=== PATIENT | female | born 1975 | race Hispanic/Latino ===

== ENCOUNTER 2018-03-31 09:27 | Inpatient (IN) | payer BC ==
[2018-03-31 09:32] VITALS: BMI 27.1
[2018-03-31] MEDS ORDERED: Sodium Chloride 0.9% 1,000 ML IV STA (09:49)
[2018-03-31] MEDS ORDERED: Thiamine 100 mg/ml Inj IM ONE (09:49)
--- NOTE | 2018-03-31 10:09 | ED PDOC ---
HPI: Abdomen Time Seen by Provider: 03/31/18 09:39 Chief Complaint (Nursing): Abdominal Pain Chief Complaint (Provider): fall, abdominal bruising History Per: Patient History/Exam Limitations: no limitations Onset/Duration Of Symptoms: Days (2 weeks) Current Symptoms Are (Timing): Still Present Severity: Moderate Location Of Pain/Discomfort: Diffuse Quality Of Discomfort: Other (no current pain) Associated Symptoms: Nausea, Vomiting, Loss Of Appetite, Constipation. denies: Diarrhea Exacerbating Factors: None Alleviating Factors: None Last Bowel Movement: Days Ago (6) Additional Complaint(s): 42yo female arrives from urgent care center c/o abdominal bruising, dizziness/ weakness and intermittent abdominal pains. States she fell on sidewalk about 2 weeks ago, striking head and abdomen. No medical attention sought at the time. Since then having bruising to abdomen and R flank, dizziness and generalized weakness. Sent from for evaluation. States prior would binge drink, completed outpatient rehab in January and since then drinking minimally, states last drink 3 weeks ago. Denies melena, (+ constipation), fever, urinary symptoms. Does not persistent nausea, loss appetite and nonbloody vomiting intermittently. Past Medical History Reviewed: Historical Data, Nursing Documentation, Vital Signs Vital Signs: Last Vital Signs Temp 97.8 F 04/04/18 12:17 Pulse 86 04/04/18 12:17 Resp 18 04/04/18 12:17 BP 118/83 04/04/18 12:17 Pulse Ox 100 04/04/18 12:17 - Medical History Other PMH: etoh abuse - Surgical History Other surgeries: ACL repair - Family History Family History: States: Unknown Family Hx - Living Arrangements Living Arrangements: Alone - Social History Current smoker - smoking cessation education provided: Yes ("social smoker") Alcohol: > 2 Drinks/Day Drugs: Denies - Home Medications Home Medications: Ambulatory Orders Medication Instructions Recorded Biotin 1 cap PO DAILY 03/31/18 Folic Acid 1 mg PO DAILY #30 tab 04/04/18 Lactulose [Enulose] 30 gm PO DAILY #30 udc 04/04/18 - Allergies Allergies/Adverse Reactions: Allergies Allergy/AdvReac Type Severity Reaction Status Date / Time No Known Allergies Allergy Verified 03/31/18 09:36 Review of Systems Constitutional: Positive for: Weakness, Malaise, Weight loss. Negative for: Fever Eyes: Positive for: Redness Cardiovascular: Negative for: Chest Pain Respiratory: Positive for: Shortness of Breath Gastrointestinal: Positive for: Nausea, Vomiting, Abdominal Pain Genitourinary Female: Negative for: Dysuria, Hematuria Musculoskeletal: Negative for: Neck Pain, Back Pain Skin: Negative for: Rash, Lesions Neurological: Positive for: Weakness, Headache, Dizziness. Negative for: Change in Speech Psych: Negative for: Suicidal ideation Physical Exam - Reviewed Nursing Documentation Reviewed: Yes Vital Signs Reviewed: Yes - Physical Exam Appears: Positive for: Well, Non-toxic, No Acute Distress Head Exam: Positive for: ATRAUMATIC, NORMAL INSPECTION, NORMOCEPHALIC Skin: Positive for: Normal Color, Warm, DRY Eye Exam: Positive for: EOMI, PERRL, Conjunctival injection (trace), Scleral icterus (trace) ENT: Positive for: Normal ENT Inspection, Pharyngeal Erythema Neck: Positive for: Normal, Painless ROM Cardiovascular/Chest: Positive for: Regular Rate, Rhythm Respiratory: Positive for: Normal Breath Sounds. Negative for: Respiratory Distress Gastrointestinal/Abdominal: Positive for: Soft, Other (ecchymosis old appearing R flank and R abdominal anterior wall). Negative for: Tenderness, Distended, Guarding, Rebound Back: Positive for: Normal Inspection Extremity: Positive for: Normal ROM Neurologic/Psych: Positive for: Alert, Oriented. Negative for: Motor/Sensory Deficits - Laboratory Results Result Diagrams: 04/04/18 05:00 04/04/18 05:00 - ECG ECG: Positive for: Interpreted By Me ECG Rhythm: Positive for: ST/T Changes Rate: 84 O2 Sat by Pulse Oximetry: 100 Pulse Ox Interpretation: Normal Medical Decision Making Medical Decision Making: workup initiated for abdominal trauma in setting of alcohol abuse and concern for coagulopathy or liver dysfunction Udip +ketones/bili/blood labs reviewed reveal mild leukopenia and thrombocytopenia, Hgb normal chemistries deranged with hyponatremia, hypokalemia, elevated LFTs, hyperbilirubinemia and elevated lipase IVF LR bolus ordered oral potassium ordered CT brain negative CT abd pelv Accession No. : [id number] Patient Name / ID : SHERMAN BAKER / [id number] Exam Date : 03/31/2018 11:51:37 ( Approved ) Study Comment : Sex / Age : F / 42Y Creator : Xiang Sow MD Dictator : Xiang Sow MD Cryptographic Clerk : Head Of Commission Department : Xiang Sow MD Approver2 : Report Date : 03/31/2018 13:03:34 My Comment : Date of service: 03/31/2018 PROCEDURE: CT Abdomen and Pelvis with contrast HISTORY: fall, abd wall/ R flank ecchymosis, abuse COMPARISON: None. TECHNIQUE: Contrast dose: Omnipaque 300, 96 cc Radiation dose: Total exam DLP = 326.16 mGy-cm. This CT exam was performed using one or more of the following dose reduction techniques: Automated exposure control, adjustment of the mA and/or kV according to patient size, and/or use of iterative reconstruction technique. FINDINGS: LOWER THORAX: Unremarkable. LIVER: There is marked lucency throughout the liver compatible with hepatic steatosis. No focal mass or definite intrahepatic biliary dilatation is appreciated. GALLBLADDER AND BILE DUCTS: Gallbladder appears distended but is otherwise unremarkable appearing. PANCREAS: Unremarkable. No gross lesion or ductal dilatation. SPLEEN: Unremarkable. ADRENALS: Unremarkable. No mass. KIDNEYS AND URETERS: Unremarkable. No hydronephrosis. No solid mass. VASCULATURE: Unremarkable. No aortic aneurysm. BOWEL: Unremarkable. No obstruction. No gross mural thickening. APPENDIX: Normal appendix. PERITONEUM: Unremarkable. No free fluid. No free air. LYMPH NODES: Unremarkable. No enlarged lymph nodes. BLADDER: Unremarkable. REPRODUCTIVE: Likely tampon in vaginal vault. Two small left adnexal cysts just under 2 cm greatest dimension. BONES: No acute fracture. OTHER FINDINGS: Trace reactive change right flank subcutaneous fat superficially. IMPRESSION: 1. No acute intra-abdominal or pelvic findings. 2. No fracture identified. 3. Trace reactive change right flank superficial subcutaneous fat. 4. Marked hepatic steatosis. 5. Two small left adnexal cysts identified. Given chemistry derangement and evidence of acute liver injury admit Dr Sarah lay regional vice president surgical sales medicine aware 115p. Consult GI regional vice president surgical sales. Disposition - Clinical Impression Clinical Impression: Abdominal pain, History of ETOH abuse, Hyponatremia, Hypokalemia - Patient ED Disposition Is Patient to be Admitted: Yes - Disposition Disposition Time: 12:05 Condition: STABLE
[2018-03-31 10:15] LABS: BASO % 0.3 % (0.0-2.0); EOS % 0.1 % (0.0-4.0); LYMPH # 0.6 K/uL (1.0-4.3); LYMPH % 12.3 % (20.0-40.0); MEAN CELL VOLUME 90.6 fl (81.0-99.0); MEAN CORPUSCULAR HEMOGLOBIN 31.9 pg (27.0-31.0); MEAN CORPUSCULAR HGB CONC 35.3 g/dL (33.0-37.0); MEAN PLATELET VOLUME 8.2 fl (7.2-11.7); MONO # 0.5 K/uL (0.0-0.8); MONO % 11.1 % (0.0-10.0); NEUT # 3.6 K/uL (1.8-7.0); NEUT % 76.2 % (50.0-75.0); NRBC % 0.1 % (0.0-0.0); RBC 4.38 Mil/uL (3.80-5.20); RED CELL DISTRIBUTION WIDTH 15.7 % (11.5-14.5); WHITE BLOOD COUNT 4.7 K/uL (4.8-10.8)
[2018-03-31 10:24] LABS: SQUAMOUS EPITHIAL 7 /hpf (0-5); URINE BILIRUBIN SMALL (NEGATIVE); URINE BLOOD SMALL (NEGATIVE); URINE CLARITY CLOUDY (Clear); URINE COLOR AMBER (YELLOW); URINE GLUCOSE (UA) 50 mg/dL (Normal); URINE LEUKOCYTE ESTERASE NEG Leu/uL (Negative); URINE PROTEIN >=500 mg/dL (NEGATIVE)
[2018-03-31] MEDS ORDERED: Thiamine 100 mg/ml Inj ONE (10:33)
[2018-03-31 10:43] LABS: BARBITURATES, UR NEGATIVE (NEGATIVE); BENZODIAZEPINES, UR POSITIVE (NEGATIVE)
--- NOTE | 2018-03-31 10:57 | CT ---
Date of service: 03/31/2018 PROCEDURE: CT HEAD WITHOUT CONTRAST. HISTORY: fall, hx etoh abuse COMPARISON: None available. TECHNIQUE: Axial computed tomography images were obtained through the head/brain without intravenous contrast. Radiation dose: Total exam DLP = 797.50 mGy-cm. This CT exam was performed using one or more of the following dose reduction techniques: Automated exposure control, adjustment of the mA and/or kV according to patient size, and/or use of iterative reconstruction technique. FINDINGS: HEMORRHAGE: No intracranial hemorrhage. BRAIN: Normal ly-white matter differentiation and density are appreciated throughout the cerebrum and cerebellum with the brainstem appearing unremarkable as well. There is no mass effect. There is no suspicious extra-axial fluid collection and the midline brain anatomy appears diffusely unremarkable. VENTRICLES: Unremarkable. No hydrocephalus. CALVARIUM: No destructive bony lesion or displaced fracture identified including through the skullbase. PARANASAL SINUSES: Unremarkable as visualized. No significant inflammatory changes. MASTOID AIR CELLS: Unremarkable as visualized. No inflammatory changes. OTHER FINDINGS: None. IMPRESSION: Unremarkable noncontrast head CT.
[2018-03-31 11:15] LABS: OPIATES, UR NEGATIVE (NEGATIVE); PHENCYCLIDINE, UR NEGATIVE (NEGATIVE)
[2018-03-31 11:18] LABS: PROTHROMBIN TIME 11.3 Seconds (9.8-13.1)
[2018-03-31 11:20] LABS: PARTIAL THROMBOPLASTIN TIME 30.7 Seconds (25.6-37.1)
[2018-03-31 11:29] LABS: ALB/GLOB RATIO 1.2 (1.0-2.1); ALBUMIN 5.4 g/dL (3.5-5.0); ALT/SGPT 132 U/L (9-52); AST/SGOT 491 U/L (14-36); BLOOD UREA NITROGEN 14 mg/dl (7-17); GFR AFRICAN-AMERICAN > 60; GFR NON-AFRICAN AMERICAN > 60
[2018-03-31] MEDS ORDERED: Sodium Chloride 0.9% 50 ML IV ONE (11:57)
[2018-03-31] MEDS ORDERED: Iohexol 300 100 ML IJ ONE (11:57)
[2018-03-31 12:02] LABS: LIPASE 3175 U/L (23-300)
--- NOTE | 2018-03-31 13:04 | CT ---
Date of service: 03/31/2018 PROCEDURE: CT Abdomen and Pelvis with contrast HISTORY: fall, abd wall/ R flank ecchymosis, abuse COMPARISON: None. TECHNIQUE: Contrast dose: Omnipaque 300, 96 cc Radiation dose: Total exam DLP = 326.16 mGy-cm. This CT exam was performed using one or more of the following dose reduction techniques: Automated exposure control, adjustment of the mA and/or kV according to patient size, and/or use of iterative reconstruction technique. FINDINGS: LOWER THORAX: Unremarkable. LIVER: There is marked lucency throughout the liver compatible with hepatic steatosis. No focal mass or definite intrahepatic biliary dilatation is appreciated. GALLBLADDER AND BILE DUCTS: Gallbladder appears distended but is otherwise unremarkable appearing. PANCREAS: Unremarkable. No gross lesion or ductal dilatation. SPLEEN: Unremarkable. ADRENALS: Unremarkable. No mass. KIDNEYS AND URETERS: Unremarkable. No hydronephrosis. No solid mass. VASCULATURE: Unremarkable. No aortic aneurysm. BOWEL: Unremarkable. No obstruction. No gross mural thickening. APPENDIX: Normal appendix. PERITONEUM: Unremarkable. No free fluid. No free air. LYMPH NODES: Unremarkable. No enlarged lymph nodes. BLADDER: Unremarkable. REPRODUCTIVE: Likely tampon in vaginal vault. Two small left adnexal cysts just under 2 cm greatest dimension. BONES: No acute fracture. OTHER FINDINGS: Trace reactive change right flank subcutaneous fat superficially. IMPRESSION: 1. No acute intra-abdominal or pelvic findings. 2. No fracture identified. 3. Trace reactive change right flank superficial subcutaneous fat. 4. Marked hepatic steatosis. 5. Two small left adnexal cysts identified.
[2018-03-31] MEDS ORDERED: Lactated Ringer's 1,000 ML IV SCH (13:30)
[2018-03-31] MEDS ORDERED: Potassium Chloride 20 mEq ER Tab PO ONE ×2 (13:38→13:54)
--- NOTE | 2018-03-31 16:01 | US ---
Date of service: 03/31/2018 HISTORY: elevated lipase r/o CBD stone COMPARISON: None. TECHNIQUE: Sonographic evaluation of the right upper quadrant of the abdomen. FINDINGS: LIVER: Measures 18.5 cm in length. Increased echogenicity of the liver parenchyma. No mass. No intrahepatic bile duct dilatation. GALLBLADDER: Sludge identified layering in the dependent portion of the distended gallbladder. No mural thickening or pericholecystic fluid collection. No reported sonographic Fay sign. COMMON BILE DUCT: Measures 5.0 mm. No stones. No dilatation. PANCREAS: Unremarkable as visualized. No mass. No ductal dilatation. RIGHT KIDNEY: Measures 11.8 cm in length. Normal echogenicity. No calculus, mass, or hydronephrosis. AORTA: No aneurysmal dilatation. IVC: Unremarkable. OTHER FINDINGS: None . IMPRESSION: Hepatic steatosis identified. Distended gallbladder with sludge at the dependent portion. No sonographic Fay sign. Normal caliber CBD.
--- NOTE | 2018-03-31 17:04 | CARD ---
APPROVED REPORT Date of service: 03/31/2018 <Conclusion> Normal sinus rhythm Cannot rule out Inferior infarct, age undetermined ST & T wave abnormality, consider anterior ischemia Abnormal ECG
[2018-03-31] MEDS: Lactated Ringer's 1,000 ML IV SCH ×2 (19:10→23:20)
[2018-03-31] MEDS ORDERED: HYDROmorphone 1 mg/ml ISec IVP PRN (19:56)
[2018-04-01 06:20] LABS: PROTHROMBIN TIME 11.6 Seconds (9.8-13.1)
[2018-04-01 06:29] LABS: ALB/GLOB RATIO 1.3 (1.0-2.1); ALBUMIN 3.8 g/dL (3.5-5.0); ALT/SGPT 110 U/L (9-52); AST/SGOT 381 U/L (14-36); BLOOD UREA NITROGEN 5 mg/dl (7-17); CALCIUM 9.3 mg/dL (8.4-10.2); GFR AFRICAN-AMERICAN > 60; GFR NON-AFRICAN AMERICAN > 60
[2018-04-01] MEDS: Lactated Ringer's 1,000 ML IV SCH (08:56)
[2018-04-01] MEDS: Lactulose 10 gm/15 ml Syrup PO SCH (08:57)
[2018-04-01 10:54] LABS: OPIATES, UR NEGATIVE (NEGATIVE)
[2018-04-01 10:59] LABS: BARBITURATES, UR NEGATIVE (NEGATIVE); BENZODIAZEPINES, UR NEGATIVE (NEGATIVE); PHENCYCLIDINE, UR NEGATIVE (NEGATIVE)
--- NOTE | 2018-04-01 13:19 | CP.PCM.CON ---
Addendum entered and electronically signed by Kvng Avalos DO 04/01/18 14:26 : Case discussed with GI attending, Dr Angeles Original Note: <Kvng Avalos - Last Filed: 04/01/18 14:23> History of Present Illness - History of Present Illness History of Present Illness: PGY6 GI Fellow Consult Note Patient is a 42 year-old white female with PMHx significant for alcohol abuse s/ p recent alcohol rehabilitation ending in January 2018 who presented to the ED yesterday with generalized weakness, abdominal pain, vomiting. Patient states she was in normal health until 10 days ago after she missed a step on the sidewalk and fell. She does not recall whether or not she hit her head. Moreover , at around the same time she admits to contact with an ill neighbor who had a gastrointestinal infection. Following these events, she developed nausea, vomiting, diarrhea and abdominal pain. States she has had difficulty tolerating PO intake for approximately 10 days. The patient does admit to EtOH use following her rehabilitation but denies any recent use but does not appear forthcoming with this information. 12 system ROS performed and negative except where stated PMHx: See HPI PSHx: ACL repair FHx: Discussed with patient and she denies any significant family history Social: Denies tobacco or illicit drug use, ongoing EtOH abuse and history of heavy use/rehab Endo: No prior endoscopic evaluations Past Patient History - Past Medical History & Family History Past Medical History?: Yes - Past Social History Smoking Status: Light Smoker < 10 Cigarettes Daily - CARDIAC Hx Cardiac Disorders: No - PULMONARY Hx Respiratory Disorders: No - NEUROLOGICAL Hx Neurological Disorder: No - HEENT Hx HEENT Problems: No - RENAL Hx Chronic Kidney Disease: No - ENDOCRINE/METABOLIC Hx Endocrine Disorders: No - HEMATOLOGICAL/ONCOLOGICAL Hx AIDS: No Hx Bruising: Yes Hx Human Immunodeficiency Virus (HIV): No - INTEGUMENTARY Hx Dermatological Problems: No - MUSCULOSKELETAL/RHEUMATOLOGICAL Hx Falls: Yes (2 weeks ago) - GASTROINTESTINAL Hx Constipation: Yes (last bm 6 days ago) - GENITOURINARY/GYNECOLOGICAL Other/Comment: 1 miscarriage 10 yr ago - PSYCHIATRIC Hx Anxiety: Yes Hx Substance Use: No Other/Comment: etoh last drink 3 weeks ago. outpatient rehab 3 mo ended 02/13. drank after program last 3 wks ago - SURGICAL HISTORY Other/Comment: ACL rt foot 10 yrs ago - ANESTHESIA Hx Anesthesia: Yes Hx Anesthesia Reactions: No Meds Allergies/Adverse Reactions: Allergies Allergy/AdvReac Type Severity Reaction Status Date / Time No Known Allergies Allergy Verified 03/31/18 09:36 - Medications Medications: Current Medications Hydromorphone HCl (Dilaudid) 1 mg IVP Q4 PRN PRN Reason: Pain, severe (8-10) Last Admin: 03/31/18 20:56 Dose: 1 mg Lactated Ringer's (Lactated Ringer's) 1,000 mls @ 250 mls/hr IV .Q4H [facility] Last Admin: 04/01/18 08:56 Dose: 250 mls/hr Lactulose (Enulose) 30 gm PO DAILY ARGELIA Last Admin: 04/01/18 08:57 Dose: 30 gm Physical Exam - Constitutional Appears: Non-toxic, No Acute Distress - Eye Exam Eye Exam: EOMI, PERRL - ENT Exam ENT Exam: Mucous Membranes Moist - Respiratory Exam Respiratory Exam: Clear to Auscultation Bilateral. absent: Rales, Rhonchi, Wheezes - Cardiovascular Exam Cardiovascular Exam: RRR, +S1, +S2 - GI/Abdominal Exam GI & Abdominal Exam: Normal Bowel Sounds, Organomegaly, Soft. absent: Distended , Firm, Guarding, Hernia, Rigid, Tenderness - Extremities Exam Extremities exam: Positive for: normal inspection. Negative for: pedal edema Additional comments: healing scab over left knee - Neurological Exam Neurological exam: Alert, Oriented x3 - Psychiatric Exam Psychiatric exam: Normal Affect, Normal Mood - Skin Skin Exam: Dry, Warm Results - Vital Signs Recent Vital Signs: Last Vital Signs Temp 99 F 04/01/18 12:14 Pulse 83 04/01/18 12:14 Resp 18 04/01/18 12:14 BP 117/80 04/01/18 12:14 Pulse Ox 99 04/01/18 12:14 - Labs Result Diagrams: 03/31/18 10:08 04/01/18 04:35 Labs: Laboratory Results - last 24 hr 03/31/18 04/01/18 04/01/18 15:30 04:35 04:35 PT 11.6 INR 1.0 Sodium 132 Potassium 3.0 L Chloride 93 L Carbon Dioxide 31 H Anion Gap 11 BUN 5 L Creatinine 0.3 L Est GFR ( Amer) > 60 Est GFR (Non-Af Amer) > 60 Random Glucose 129 H Calcium 9.3 Total Bilirubin 5.6 H AST 381 H D ALT 110 H Alkaline Phosphatase 115 Troponin I 0.0230 Total Protein 6.9 Albumin 3.8 Globulin 3.0 Albumin/Globulin Ratio 1.3 TSH 3rd Generation 3.08 Urine Opiates Screen Urine Methadone Screen Ur Barbiturates Screen Ur Phencyclidine Scrn Ur Amphetamines Screen U Benzodiazepines Scrn U Oth Cocaine Metabols U Cannabinoids Screen 04/01/18 10:20 PT INR Sodium Potassium Chloride Carbon Dioxide Anion Gap BUN Creatinine Est GFR ( Amer) Est GFR (Non-Af Amer) Random Glucose Calcium Total Bilirubin AST ALT Alkaline Phosphatase Troponin I Total Protein Albumin Globulin Albumin/Globulin Ratio TSH 3rd Generation Urine Opiates Screen Negative Urine Methadone Screen Negative Ur Barbiturates Screen Negative Ur Phencyclidine Scrn Negative Ur Amphetamines Screen Negative U Benzodiazepines Scrn Negative U Oth Cocaine Metabols Negative U Cannabinoids Screen Negative Assessment & Plan - Assessment and Plan (Free Text) Assessment: Patient is a 42 year-old white female with PMHx significant for alcohol abuse s/ p recent alcohol rehabilitation ending in January 2018 who presented to the ED yesterday with generalized weakness, abdominal pain, vomiting -Abnormal LFTs - Acute alcoholic hepatitis suspected -Acute gastroenteritis -Questionable resolving acute alcoholic pancreatitis -EtOH abuse -Hyperlipasemia -Hyponatremia, suspect beer potomania -S/P fall - possible post-concussive symptoms Plan: -Presently, patient asymptomatic -Symptoms of nausea/vomiting after fall possibly related to post-concussive symptoms - no abnormality noted on CT head -On aggressive IVF with LR 250cc/hr - OK to discontinue if patient can tolerate diet -Advance diet as tolerated -Continue to trend LFTs; AST/ALT downtrending - T bili typically lags behind -Hepatomegaly appreciate on imaging with steatosis - education provided on strict EtOH abstinence, diet and exercise -Recommend Hepatitis panel -MDF<32 and no steroids indicated at this time for acute alcoholic hepatitis -Suspect beer potomania - Date & Time Date: 04/01/18 Time: 11:45 <Geovany Angeles - Last Filed: 04/01/18 18:59> Meds - Medications Medications: Current Medications Hydromorphone HCl (Dilaudid) 1 mg IVP Q4 PRN PRN Reason: Pain, severe (8-10) Last Admin: 03/31/18 20:56 Dose: 1 mg Lactulose (Enulose) 30 gm PO DAILY ARGELIA Last Admin: 04/01/18 08:57 Dose: 30 gm Results - Vital Signs Recent Vital Signs: Last Vital Signs Temp 99 F 04/01/18 12:14 Pulse 88 04/01/18 15:50 Resp 18 04/01/18 15:50 BP 130/87 04/01/18 15:50 Pulse Ox 98 04/01/18 15:50 - Labs Result Diagrams: 03/31/18 10:08 04/01/18 04:35 Labs: Laboratory Results - last 24 hr 04/01/18 04/01/18 04/01/18 04:35 04:35 10:20 PT 11.6 INR 1.0 Sodium 132 Potassium 3.0 L Chloride 93 L Carbon Dioxide 31 H Anion Gap 11 BUN 5 L Creatinine 0.3 L Est GFR ( Amer) > 60 Est GFR (Non-Af Amer) > 60 Random Glucose 129 H Calcium 9.3 Total Bilirubin 5.6 H AST 381 H D ALT 110 H Alkaline Phosphatase 115 Total Protein 6.9 Albumin 3.8 Globulin 3.0 Albumin/Globulin Ratio 1.3 TSH 3rd Generation 3.08 Urine Opiates Screen Negative Urine Methadone Screen Negative Ur Barbiturates Screen Negative Ur Phencyclidine Scrn Negative Ur Amphetamines Screen Negative U Benzodiazepines Scrn Negative U Oth Cocaine Metabols Negative U Cannabinoids Screen Negative Attending/Attestation - Attestation I have personally seen and examined this patient.: Yes I have fully participated in the care of the patient.: Yes I have reviewed all pertinent clinical information: Yes Notes (Text): 04/01/18 18:53 Chart reviewed. Labs and imaging results noted. The pt was interview and examined this afternoon. Appears comfortable. Alert and oriented. Tolerated diet. Agree with Dr. Avalos's assessment and plan as outlined above.
--- NOTE | 2018-04-01 14:42 | CP.PCM.HP ---
History of Present Illness - History of Present Illness History of Present Illness: CC: Abdominal pain. 42 y/o F, Hx of Alcohol abuse, recent rehab January 2018, sent by Urgent Care to [facility] for evaluation of increased abdominal pain, intensity 6:10 associated to nausea/vomiting, as per PT 2nd to fall/trauma, having bruising and pain on abdomen after fall with LOC, onset 2 weeks [employer], with no relief. As per PT, she fell while walking in the street and she missed a step on the sidewalk an fell heating her abdomen and head. Pt denied head pain due to trauma. Worsening symptom: Found abnormal LFTs, c/o of constant Left lower back pain 510, generalized weakness. Aggravated factor: Continue drinking , as per Pt, last was 3 weeks ago. Pt denied: Fever, chills, headache, dysuria, CP, palpitations, numbness, SOB, cough, sick contact, [facility] EKG: Normal sinus rhythm, cannot ruled out inferior infarct age undetermined. Abd/Pelv CT: Marked Hepatic steatosis, no focal mass. Gallbladder distended but otherwise unremarkable. Present on Admission - Present on Admission Any Indicators Present on Admission: No Review of Systems - Constitutional Constitutional: Weakness - EENT Eyes: Requires Corrective Lenses Ears: Other (negative) Nose/Mouth/Throat: Other (negative) - Cardiovascular Cardiovascular: Other (negative) - Respiratory Respiratory: Other (negative) - Gastrointestinal Gastrointestinal: Abdominal Pain, Nausea, Vomiting - Genitourinary Genitourinary: Other (negative) - Musculoskeletal Musculoskeletal: Back Pain - Integumentary Integumentary: Other (Bruising 2nd to fall) - Neurological Neurological: Other (LOC 2nd to fall) - Psychiatric Psychiatric: Anxiety - Endocrine Endocrine: Other (negative) - Hematologic/Lymphatic Hematologic: Other (bruising 2nd to fall) Past Patient History - Past Medical History & Family History Past Medical History?: Yes Pertinent Family History: Unknown - Past Social History Smoking Status: Light Smoker < 10 Cigarettes Daily Alcohol: Other (ETOH abuse until January 2018. there after less amount until 2 weeks ago as per Pt.) Drugs: Denies Home Situation {Lives}: Alone - CARDIAC Hx Cardiac Disorders: No - PULMONARY Hx Respiratory Disorders: No - NEUROLOGICAL Hx Neurological Disorder: No - HEENT Hx HEENT Problems: No - RENAL Hx Chronic Kidney Disease: No - ENDOCRINE/METABOLIC Hx Endocrine Disorders: No - HEMATOLOGICAL/ONCOLOGICAL Hx Blood Disorders: Yes Hx AIDS: No Hx Bruising: Yes Hx Human Immunodeficiency Virus (HIV): No - INTEGUMENTARY Hx Dermatological Problems: No - MUSCULOSKELETAL/RHEUMATOLOGICAL Hx Musculoskeletal Disorders: Yes Hx Falls: Yes (2 weeks ago) - GASTROINTESTINAL Hx Gastrointestinal Disorders: Yes Hx Constipation: Yes (last bm 6 days ago) - GENITOURINARY/GYNECOLOGICAL Other/Comment: 1 miscarriage 10 yr ago - PSYCHIATRIC Hx Psychophysiologic Disorder: Yes Hx Anxiety: Yes Hx Substance Use: No Other/Comment: etoh last drink 3 weeks ago. outpatient rehab 3 mo ended 02/13. drank after program last 3 wks ago - SURGICAL HISTORY Hx Surgeries: Yes Other/Comment: ACL rt foot 10 yrs ago - ANESTHESIA Hx Anesthesia: Yes Hx Anesthesia Reactions: No Meds Allergies/Adverse Reactions: Allergies Allergy/AdvReac Type Severity Reaction Status Date / Time No Known Allergies Allergy Verified 03/31/18 09:36 Physical Exam - Constitutional Appears: No Acute Distress - Head Exam Head Exam: NORMAL INSPECTION - Eye Exam Eye Exam: PERRL - ENT Exam ENT Exam: Normal Exam - Neck Exam Neck exam: Positive for: Normal Inspection - Respiratory Exam Respiratory Exam: Clear to Auscultation Bilateral - Cardiovascular Exam Cardiovascular Exam: REGULAR RHYTHM - GI/Abdominal Exam GI & Abdominal Exam: Normal Bowel Sounds, Soft Additional comments: Old ecchymosis appearance on R flank, R abdominal anterior wall. - Extremities Exam Extremities exam: Positive for: normal inspection - Back Exam Back exam: NORMAL INSPECTION - Neurological Exam Neurological exam: Alert, Oriented x3, Reflexes Normal Additional comments: No motor/sensory deficit. - Skin Skin Exam: Warm Results - Vital Signs Recent Vital Signs: Last Vital Signs Temp 99 F 04/01/18 12:14 Pulse 83 04/01/18 12:14 Resp 18 04/01/18 12:14 BP 117/80 04/01/18 12:14 Pulse Ox 99 04/01/18 12:14 reviewed Jeff - Labs Result Diagrams: 03/31/18 10:08 04/01/18 04:35 Labs: Laboratory Results - last 24 hr 03/31/18 04/01/18 04/01/18 15:30 04:35 04:35 PT 11.6 INR 1.0 Sodium 132 Potassium 3.0 L Chloride 93 L Carbon Dioxide 31 H Anion Gap 11 BUN 5 L Creatinine 0.3 L Est GFR ( Amer) > 60 Est GFR (Non-Af Amer) > 60 Random Glucose 129 H Calcium 9.3 Total Bilirubin 5.6 H AST 381 H D ALT 110 H Alkaline Phosphatase 115 Troponin I 0.0230 Total Protein 6.9 Albumin 3.8 Globulin 3.0 Albumin/Globulin Ratio 1.3 TSH 3rd Generation 3.08 Urine Opiates Screen Urine Methadone Screen Ur Barbiturates Screen Ur Phencyclidine Scrn Ur Amphetamines Screen U Benzodiazepines Scrn U Oth Cocaine Metabols U Cannabinoids Screen 04/01/18 10:20 PT INR Sodium Potassium Chloride Carbon Dioxide Anion Gap BUN Creatinine Est GFR ( Amer) Est GFR (Non-Af Amer) Random Glucose Calcium Total Bilirubin AST ALT Alkaline Phosphatase Troponin I Total Protein Albumin Globulin Albumin/Globulin Ratio TSH 3rd Generation Urine Opiates Screen Negative Urine Methadone Screen Negative Ur Barbiturates Screen Negative Ur Phencyclidine Scrn Negative Ur Amphetamines Screen Negative U Benzodiazepines Scrn Negative U Oth Cocaine Metabols Negative U Cannabinoids Screen Negative reviewed J.P. - EKG Data EKG comments: reviewed J.P. - Imaging and Cardiology CT scan - abdomen Status: Report reviewed by me (Jeff) CT scan - pelvis Status: Report reviewed by me (Jeff) US - abdomen Status: Report reviewed by me (Jeff) CT scan - head Status: Report reviewed by me (Jeff) Assessment & Plan (1) Hx of fall Status: Acute Priority: High (2) Abdominal pain Status: Acute Priority: High (3) Hepatic steatosis Status: Acute Priority: High (4) Constipation Status: Acute Priority: High (5) History of ETOH abuse Status: Acute Priority: High - Assessment and Plan (Free Text) Plan: Continue IV fluids, Dilaudid, Lactulose, F/U Hepatitis panel, Blood C-S, U C-S, GI consult appreciated. - Date & Time Date: 04/01/18 Time: 11:55
[2018-04-02 07:04] LABS: BASO % 0.7 % (0.0-2.0); EOS % 0.9 % (0.0-4.0); HEMOGLOBIN 11.1 g/dL (12.0-16.0); LYMPH # 0.8 K/uL (1.0-4.3); MEAN CELL VOLUME 91.7 fl (81.0-99.0); MEAN CORPUSCULAR HEMOGLOBIN 31.4 pg (27.0-31.0); MEAN CORPUSCULAR HGB CONC 34.2 g/dL (33.0-37.0); MONO # 0.4 K/uL (0.0-0.8); MONO % 12.3 % (0.0-10.0); NEUT # 1.8 K/uL (1.8-7.0); NEUT % 59.1 % (50.0-75.0); NRBC % 0.2 % (0.0-0.0); RBC 3.55 Mil/uL (3.80-5.20); RED CELL DISTRIBUTION WIDTH 15.6 % (11.5-14.5); WHITE BLOOD COUNT 3.1 K/uL (4.8-10.8)
[2018-04-02 07:23] LABS: ALB/GLOB RATIO 1.3 (1.0-2.1); ALBUMIN 3.8 g/dL (3.5-5.0); ALT/SGPT 109 U/L (9-52); AST/SGOT 285 U/L (14-36); BLOOD UREA NITROGEN 3 mg/dl (7-17); CALCIUM 9.6 mg/dL (8.4-10.2); GFR AFRICAN-AMERICAN > 60; GFR NON-AFRICAN AMERICAN > 60
[2018-04-02 07:27] LABS: INR 1.1
[2018-04-02] MEDS: Potassium CL 10 MEQ/50 ML 50 ML IVPB SCH ×4 (11:11→14:32)
[2018-04-02] MEDS: Lactulose 10 gm/15 ml Syrup PO SCH (11:11)
--- NOTE | 2018-04-02 12:17 | CP.PCM.PN ---
<Kvng Avalos - Last Filed: 04/02/18 12:15> Subjective - Date & Time of Evaluation Date of Evaluation: 04/02/18 Time of Evaluation: 10:45 - Subjective Subjective: PGY6 GI Fellow Progress Note Patient seen and examined bedside this morning. She has no complaints at present. States that she ate all meals without issue and denies any abdominal pain, nausea, vomiting, dizziness, lightheadedness. Admits that she cannot recall multiple conversations she has had following her mechanical fall. 12 system ROS performed and negative except where stated Objective - Vital Signs/Intake and Output Vital Signs (last 24 hours): Temp Pulse Resp BP Pulse Ox 98.6 F 77 18 110/73 99 04/02/18 11:56 04/02/18 11:56 04/02/18 11:56 04/02/18 11:56 04/02/18 11:56 - Medications Medications: Current Medications Chlordiazepoxide (Librium) 25 mg PO Q6 [facility] Hydromorphone HCl (Dilaudid) 1 mg IVP Q4 PRN PRN Reason: Pain, severe (8-10) Last Admin: 03/31/18 20:56 Dose: 1 mg Potassium Chloride (Potassium Cl 10meq/50ml Sterile Water) 50 mls @ 50 mls/hr IVPB Q1 [facility] Stop: 04/02/18 12:59 Last Admin: 04/02/18 11:11 Dose: 50 mls/hr Lactulose (Enulose) 30 gm PO DAILY [facility] Last Admin: 04/02/18 11:11 Dose: Not Given - Labs Labs: 04/02/18 06:34 04/02/18 06:34 PT 12.0 Seconds (9.8-13.1) 04/02/18 06:34 INR 1.1 04/02/18 06:34 APTT 30.7 Seconds (25.6-37.1) 03/31/18 11:05 - Constitutional Appears: Non-toxic, No Acute Distress - Eye Exam Eye Exam: EOMI, PERRL - ENT Exam ENT Exam: Mucous Membranes Moist - Respiratory Exam Respiratory Exam: Clear to Ausculation Bilateral. absent: Rales, Rhonchi, Wheezes - Cardiovascular Exam Cardiovascular Exam: RRR, +S1, +S2 - GI/Abdominal Exam GI & Abdominal Exam: Soft, Normal Bowel Sounds. absent: Distended, Firm, Guarding, Rigid, Tenderness, Organomegaly - Extremities Exam Extremities Exam: Normal Inspection. absent: Pedal Edema - Neurological Exam Neurological Exam: Alert, Awake, Oriented x3 - Skin Additional comments: left knee abrasion, healing Assessment and Plan - Assessment and Plan (Free Text) Assessment: Patient is a 42 year-old white female with PMHx significant for alcohol abuse s/ p recent alcohol rehabilitation ending in January 2018 who presented to the ED yesterday with generalized weakness, abdominal pain, vomiting -Abnormal LFTs - Mixed pattern, Acute alcoholic hepatitis suspected -Acute gastroenteritis, resolved -Questionable resolving acute alcoholic pancreatitis less likely -EtOH abuse -Hepatic steatosis -Hyperlipasemia -Hyponatremia, suspect beer potomania -Hypokalemia, hypophosphatemia -S/P mechanical fall - suspect post-concussive symptoms Plan: -Patient remains asymptomatic, eager to go home -Suspect post-concussive symptoms vs recent EtOH use - confusion/amnesia/ dizziness; could consider neurologic evaluation but defer to primary team -Diet as tolerated -LFTs downtrending; recommend outpatient follow up and repeat CMP in 1 week -MDF<32, no indication for corticosteroid therapy -Hepatitis panel pending -Encouraged patient to establish care with primary care as outpatient -EtOH cessation strongly encouraged, education provided -Multiple electrolyte abnormalities - replete K+ and Phos as indicated -OK to D/C from GI standpoint Case discussed with GI attending, Dr Angeles <Geovany Angeles - Last Filed: 04/02/18 15:10> Objective - Vital Signs/Intake and Output Vital Signs (last 24 hours): Temp Pulse Resp BP Pulse Ox 98.6 F 77 18 110/73 99 04/02/18 11:56 04/02/18 11:56 04/02/18 11:56 04/02/18 11:56 04/02/18 11:56 - Medications Medications: Current Medications Chlordiazepoxide (Librium) 25 mg PO Q6 [facility] Last Admin: 04/02/18 12:35 Dose: 25 mg Folic Acid (Folic Acid) 1 mg PO DAILY [facility] Last Admin: 04/02/18 14:31 Dose: 1 mg Hydromorphone HCl (Dilaudid) 1 mg IVP Q4 PRN PRN Reason: Pain, severe (8-10) Last Admin: 03/31/18 20:56 Dose: 1 mg Lactulose (Enulose) 30 gm PO DAILY [facility] Last Admin: 04/02/18 11:11 Dose: Not Given Thiamine HCl (Vitamin B1 Tab) 100 mg PO DAILY [facility] Last Admin: 04/02/18 14:31 Dose: 100 mg - Labs Labs: 04/02/18 06:34 04/02/18 06:34 PT 12.0 Seconds (9.8-13.1) 04/02/18 06:34 INR 1.1 04/02/18 06:34 APTT 30.7 Seconds (25.6-37.1) 03/31/18 11:05 Attending/Attestation - Attestation I have personally seen and examined this patient.: Yes I have fully participated in the care of the patient.: Yes I have reviewed all pertinent clinical information, including history, physical exam and plan: Yes Notes (Text): 04/02/18 15:09 Chart and labs reviewed. Pt interviewed and examined. Pt/s mother was present at bedside. Awake and alert. Tolerating diet. Non-tended abdomen with normal bowel sounds on exam. Started on Librium this am. Electrolytes being corrected. Agree with Dr. Ridley's assessment and plan. Will need substance abuse counselling.
--- NOTE | 2018-04-02 14:07 | CP.PCM.PN ---
Subjective - Date & Time of Evaluation Date of Evaluation: 04/02/18 Time of Evaluation: 13:40 - Subjective Subjective: F/U Abdominal pain. no abdominal pain, tolerating well diet Objective - Vital Signs/Intake and Output Vital Signs (last 24 hours): Temp Pulse Resp BP Pulse Ox 98.6 F 77 18 110/73 99 04/02/18 11:56 04/02/18 11:56 04/02/18 11:56 04/02/18 11:56 04/02/18 11:56 - Medications Medications: Current Medications Chlordiazepoxide (Librium) 25 mg PO Q6 [facility] Last Admin: 04/02/18 12:35 Dose: 25 mg Folic Acid (Folic Acid) 1 mg PO DAILY [facility] Hydromorphone HCl (Dilaudid) 1 mg IVP Q4 PRN PRN Reason: Pain, severe (8-10) Last Admin: 03/31/18 20:56 Dose: 1 mg Lactulose (Enulose) 30 gm PO DAILY [facility] Last Admin: 04/02/18 11:11 Dose: Not Given Thiamine HCl (Vitamin B1 Tab) 100 mg PO DAILY [facility] - Labs Labs: 04/02/18 06:34 04/02/18 06:34 PT 12.0 Seconds (9.8-13.1) 04/02/18 06:34 INR 1.1 04/02/18 06:34 APTT 30.7 Seconds (25.6-37.1) 03/31/18 11:05 - Constitutional Appears: No Acute Distress - Head Exam Head Exam: NORMAL INSPECTION - Eye Exam Eye Exam: PERRL - ENT Exam ENT Exam: Normal Exam - Neck Exam Neck Exam: Normal Inspection - Respiratory Exam Respiratory Exam: Clear to Ausculation Bilateral - Cardiovascular Exam Cardiovascular Exam: REGULAR RHYTHM - GI/Abdominal Exam GI & Abdominal Exam: Soft, Normal Bowel Sounds Additional comments: Old ecchymosis on R flank, R abdominal anterior wall. - Extremities Exam Extremities Exam: Normal Inspection - Back Exam Back Exam: NORMAL INSPECTION - Neurological Exam Neurological Exam: Alert, Oriented x3, Reflexes Normal Additional comments: No motor/sensory deficit. - Skin Skin Exam: Warm Assessment and Plan (1) Hx of fall Status: Acute (2) Abdominal pain Status: Acute (3) Hepatic steatosis Status: Acute (4) Constipation Status: Acute (5) History of ETOH abuse Status: Acute - Assessment and Plan (Free Text) Plan: continue Librium, K 2.9, K replacement and rest of treatment
[2018-04-02] MEDS: Potassium & Sodium Phosphate PO SCH ×3 (15:20→21:26)
[2018-04-03 05:39] LABS: EOS # 0.1 K/uL (0.0-0.7); EOS % 1.9 % (0.0-4.0); HEMOGLOBIN 11.2 g/dL (12.0-16.0); LYMPH # 1.4 K/uL (1.0-4.3); LYMPH % 35.2 % (20.0-40.0); MEAN CELL VOLUME 92.4 fl (81.0-99.0); MEAN CORPUSCULAR HEMOGLOBIN 31.8 pg (27.0-31.0); MEAN CORPUSCULAR HGB CONC 34.4 g/dL (33.0-37.0); MEAN PLATELET VOLUME 7.9 fl (7.2-11.7); MONO # 0.6 K/uL (0.0-0.8); MONO % 15.5 % (0.0-10.0); NEUT # 1.8 K/uL (1.8-7.0); NEUT % 46.4 % (50.0-75.0); NRBC % 0.2 % (0.0-0.0); RBC 3.54 Mil/uL (3.80-5.20); RED CELL DISTRIBUTION WIDTH 15.6 % (11.5-14.5)
[2018-04-03 05:56] LABS: ALB/GLOB RATIO 1.1 (1.0-2.1); ALBUMIN 3.6 g/dL (3.5-5.0); ALT/SGPT 84 U/L (9-52); AST/SGOT 210 U/L (14-36); BLOOD UREA NITROGEN 4 mg/dl (7-17); CALCIUM 9.3 mg/dL (8.4-10.2); GFR AFRICAN-AMERICAN > 60; GFR NON-AFRICAN AMERICAN > 60
[2018-04-03 08:16] LABS: HEPATITIS B SURFACE AG Negative (NEGATIVE)
[2018-04-03 08:20] LABS: HEPATITIS B SURFACE AG Negative (NEGATIVE)
[2018-04-03 08:22] LABS: HEPATITIS A IGM NEGATIVE (NEGATIVE); HEPATITIS B CORE AB NEGATIVE (NEGATIVE)
[2018-04-03] MEDS ORDERED: Potassium Chloride 20 mEq ER Tab PO ONE (08:23)
[2018-04-03 08:25] LABS: HEPATITIS A IGM NEGATIVE (NEGATIVE); HEPATITIS B CORE AB NEGATIVE (NEGATIVE)
[2018-04-03 08:34] LABS: HEPATITIS C ANTIBODY NEGATIVE (NEGATIVE)
[2018-04-03 08:37] LABS: HEPATITIS C ANTIBODY NEGATIVE (NEGATIVE)
[2018-04-03] MEDS ORDERED: Magnesium Sulfate 1 gm in D5W 1 GM/100 ML BAG IVPB ONE (09:13)
[2018-04-03] MEDS: Potassium & Sodium Phosphate PO SCH ×4 (09:49→21:58)
[2018-04-03] MEDS: Lactulose 10 gm/15 ml Syrup PO SCH (09:50)
[2018-04-03 10:38] LABS: AMYLASE 137 U/L (30-110); LIPASE 911 U/L (23-300)
[2018-04-03] MEDS: Potassium CL 10 MEQ/50 ML 50 ML IVPB SCH ×3 (11:18→13:35)
--- NOTE | 2018-04-03 13:36 | CP.PCM.PN ---
Subjective - Date & Time of Evaluation Date of Evaluation: 04/03/18 Time of Evaluation: 10:55 - Subjective Subjective: F/U Abdominal pain. No A/D, no abdominal pain. eating well. Objective - Vital Signs/Intake and Output Vital Signs (last 24 hours): Temp Pulse Resp BP Pulse Ox 97.6 F 72 20 115/77 100 04/03/18 12:00 04/03/18 12:00 04/03/18 12:00 04/03/18 12:00 04/03/18 12:00 - Medications Medications: Current Medications Chlordiazepoxide (Librium) 25 mg PO Q6 [facility] Last Admin: 04/03/18 09:49 Dose: 25 mg Folic Acid (Folic Acid) 1 mg PO DAILY [facility] Last Admin: 04/03/18 09:50 Dose: 1 mg Hydromorphone HCl (Dilaudid) 1 mg IVP Q4 PRN PRN Reason: Pain, severe (8-10) Last Admin: 03/31/18 20:56 Dose: 1 mg Lactulose (Enulose) 30 gm PO DAILY [facility] Last Admin: 04/03/18 09:50 Dose: Not Given Potassium Phos/Sodium Phos (Neutra-Phos) 1 pkt PO QID [facility] Last Admin: 04/03/18 13:36 Dose: 1 pkt Thiamine HCl (Vitamin B1 Tab) 100 mg PO DAILY [facility] Last Admin: 04/03/18 09:50 Dose: 100 mg - Labs Labs: 04/03/18 04:55 04/03/18 04:55 PT 12.0 Seconds (9.8-13.1) 04/02/18 06:34 INR 1.1 04/02/18 06:34 APTT 30.7 Seconds (25.6-37.1) 03/31/18 11:05 - Constitutional Appears: No Acute Distress - Head Exam Head Exam: NORMAL INSPECTION - Eye Exam Eye Exam: PERRL - ENT Exam ENT Exam: Normal Exam - Neck Exam Neck Exam: Normal Inspection - Respiratory Exam Respiratory Exam: Clear to Ausculation Bilateral - Cardiovascular Exam Cardiovascular Exam: REGULAR RHYTHM - GI/Abdominal Exam GI & Abdominal Exam: Soft, Normal Bowel Sounds Additional comments: Old ecchymosis on R flank, R abdominal wall. - Extremities Exam Extremities Exam: Normal Inspection - Back Exam Back Exam: NORMAL INSPECTION - Neurological Exam Neurological Exam: Alert, Oriented x3, Reflexes Normal. absent: Motor Sensory Deficit - Skin Skin Exam: Warm Assessment and Plan (1) Hx of fall Status: Acute (2) Abdominal pain Status: Acute (3) Hepatic steatosis Status: Acute (4) Constipation Status: Acute (5) History of ETOH abuse Status: Acute - Assessment and Plan (Free Text) Plan: Potassium level 2.9, replace Potassium, Echo, Cardiology consult.
--- NOTE | 2018-04-03 18:15 | CARD ---
APPROVED REPORT Date of service: 04/03/2018 <Conclusion> Normal sinus rhythm Abnormal QRS-T angle, consider primary T wave abnormality Abnormal ECG
--- NOTE | 2018-04-03 19:15 | CARD ---
APPROVED REPORT Date of service: 04/03/2018 EXAM: Two-dimensional and M-mode echocardiogram with Doppler and color Doppler. Other Information Quality : GoodRhythm : NSR INDICATION Abnormal EKG/Arrhythmia 2D DIMENSIONS IVSd1.05 (0.7-1.1cm)LVDd4.54 (3.9-5.9cm) LVOT Diameter2.18 (1.8-2.4cm)PWd0.97 (0.7-1.1cm) IVSs1.16 (0.8-1.2cm)LVDs3.29 (2.5-4.0cm) FS (%) 27.6 %PWs1.17 (0.8-1.2cm) M-Mode DIMENSIONS Left Atrium (MM)3.03 (2.5-4.0cm)IVSd0.72 (0.7-1.1cm) Aortic Root2.48 (2.2-3.7cm)LVDd5.96 (4.0-5.6cm) Aortic Cusp Exc.2.01 (1.5-2.0cm)PWd0.69 (0.7-1.1cm) IVSs1.43 cmFS (%) 49 % LVDs3.06 (2.0-3.8cm)PWs1.27 cm Aortic Valve AoV Peak Wvdshijh111.0cm/sAoV VTI17.4cmAO Peak GR.4mmHg LVOT Peak Zujkqvoq23.3cm/sLVOT VTI11.23cmAO Mean GR.2mmHg KINGS (VMAX)1.44by4MLP (VTI)1.44cm2 Mitral Valve MV E Yyottxti75.9cm/sMV DECEL [id number] A Bkjunlrb05.9cm/s MV CAJ55qnH/A ratio1.0MVA (PHT)3.66cm2 TDI Lateral E' Peak V7.74cm/sMedial E' Peak V7.74cm/sE/Lateral E'7.6 E/Medial E'7.6 Pulmonary Valve PV Peak Ubsjqbwu55.8cm/s LEFT VENTRICLE The left ventricle is normal size. There is normal left ventricular wall thickness. The left ventricular ejection fraction is within the normal range with EF 55-60%. No regional wall motion abnormalities noted.. Transmitral Doppler flow pattern is Grade I-abnormal relaxation pattern. No left ventricle thrombus noted on this study. There is no ventricular septal defect visualized. There is no mass noted in the left ventricle. RIGHT VENTRICLE The right ventricle is normal size. There is normal right ventricular wall thickness. The right ventricular systolic function is normal. ATRIA The left atrium size is normal. The right atrium size is normal. The interatrial septum is intact with no evidence for an atrial septal defect. AORTIC VALVE The aortic valve is normal in structure. No aortic regurgitation is present. There is no aortic valvular stenosis. MITRAL VALVE The mitral valve is normal in structure. There is no mitral valve stenosis. Mitral regurgitation is mild. TRICUSPID VALVE The tricuspid valve is normal in structure. There is trace tricuspid valve regurgitation noted. PULMONIC VALVE The pulmonary valve is normal in structure. There is no pulmonic valvular regurgitation. GREAT VESSELS The aortic root is normal in size. The ascending aorta is normal in size. The pulmonary artery is normal. The IVC is normal in size and collapses >50% with inspiration. PERICARDIAL EFFUSION There is no pericardial effusion. <Conclusion> The left ventricular ejection fraction is within the normal range with EF 55-60%. Transmitral Doppler flow pattern is Grade I-abnormal relaxation pattern. Mitral regurgitation is mild.
[2018-04-03 22:06] LABS: FOLATE 10.6 ng/mL
[2018-04-03 23:29] VITALS: RESP 18
[2018-04-04 05:41] LABS: MEAN CELL VOLUME 93.8 fl (81.0-99.0); MEAN CORPUSCULAR HEMOGLOBIN 32.1 pg (27.0-31.0); MEAN CORPUSCULAR HGB CONC 34.2 g/dL (33.0-37.0); RBC 3.44 Mil/uL (3.80-5.20); WHITE BLOOD COUNT 4.9 K/uL (4.8-10.8)
[2018-04-04 06:23] LABS: ALB/GLOB RATIO 1.2 (1.0-2.1); ALBUMIN 3.6 g/dL (3.5-5.0); ALT/SGPT 97 U/L (9-52); AST/SGOT 198 U/L (14-36); BLOOD UREA NITROGEN 4 mg/dl (7-17); GFR AFRICAN-AMERICAN > 60; GFR NON-AFRICAN AMERICAN > 60; LIPASE 1128 U/L (23-300)
[2018-04-04 08:17] VITALS: O2SAT 100
[2018-04-04] MEDS ORDERED: Potassium Chloride 20 mEq ER Tab PO ONE (09:08)
[2018-04-04] MEDS: Lactulose 10 gm/15 ml Syrup PO SCH (09:42)
[2018-04-04] MEDS: Potassium & Sodium Phosphate PO SCH (09:42)
[2018-04-04] MEDS ORDERED: Lactated Ringer's 1,000 ML IV SCH (09:45)
--- NOTE | 2018-04-04 10:39 | CP.PCM.CON ---
History of Present Illness - History of Present Illness History of Present Illness: Patient is a 42 year-old white female with PMHx significant for alcohol abuse s/ p recent alcohol rehabilitation ending in January 2018 who presented to the ED yesterday with generalized weakness, abdominal pain, vomiting. Patient states she was in normal health until 10 days ago after she missed a step on the sidewalk and fell. She does not recall whether or not she hit her head. Moreover , at around the same time she admits to contact with an ill neighbor who had a gastrointestinal infection. Following these events, she developed nausea, vomiting, diarrhea and abdominal pain. States she has had difficulty tolerating PO intake for approximately 10 days. The patient does admit to EtOH use following her rehabilitation but denies any recent use but does not appear forthcoming with this information. Denies chest pain or SOB No Palpitations/dizziness PSHx: ACL repair Social: EtOH abuse and history of heavy use/rehab Endo: No prior endoscopic evaluations EKG: normal sinus rhythm Echo: Normal LV EF: 55-60% Past Patient History - Past Medical History & Family History Past Medical History?: Yes - Past Social History Smoking Status: Light Smoker < 10 Cigarettes Daily Alcohol: Other (ETOH abuse until January 2018. there after less amount until 2 weeks ago as per Pt.) Drugs: Denies Home Situation {Lives}: Alone - CARDIAC Hx Cardiac Disorders: No - PULMONARY Hx Respiratory Disorders: No - NEUROLOGICAL Hx Neurological Disorder: No - HEENT Hx HEENT Problems: No - RENAL Hx Chronic Kidney Disease: No - ENDOCRINE/METABOLIC Hx Endocrine Disorders: No - HEMATOLOGICAL/ONCOLOGICAL Hx Blood Disorders: Yes Hx AIDS: No Hx Bruising: Yes Hx Human Immunodeficiency Virus (HIV): No - INTEGUMENTARY Hx Dermatological Problems: No - MUSCULOSKELETAL/RHEUMATOLOGICAL Hx Musculoskeletal Disorders: Yes Hx Falls: Yes (2 weeks ago) - GASTROINTESTINAL Hx Gastrointestinal Disorders: Yes Hx Constipation: Yes (last bm 6 days ago) - GENITOURINARY/GYNECOLOGICAL Other/Comment: 1 miscarriage 10 yr ago - PSYCHIATRIC Hx Psychophysiologic Disorder: Yes Hx Anxiety: Yes Hx Substance Use: No Other/Comment: etoh last drink 3 weeks ago. outpatient rehab 3 mo ended 02/13. drank after program last 3 wks ago - SURGICAL HISTORY Hx Surgeries: Yes Other/Comment: ACL rt foot 10 yrs ago - ANESTHESIA Hx Anesthesia: Yes Hx Anesthesia Reactions: No Meds Allergies/Adverse Reactions: Allergies Allergy/AdvReac Type Severity Reaction Status Date / Time No Known Allergies Allergy Verified 03/31/18 09:36 - Medications Medications: Current Medications Chlordiazepoxide (Librium) [address] [facility] Last Admin: 04/04/18 09:46 Dose: 25 mg Folic Acid (Folic Acid) [address] [facility] Last Admin: 04/04/18 09:42 Dose: 1 mg Hydromorphone HCl (Dilaudid) 1 mg IVP Q4 PRN PRN Reason: Pain, severe (8-10) Last Admin: 03/31/18 20:56 Dose: 1 mg Lactated Ringer's (Lactated Ringer's) 1,000 mls @ 200 mls/hr IV .Q5H [facility] Lactulose (Enulose) [address] [facility] Last Admin: 04/04/18 09:42 Dose: Not Given Potassium Phos/Sodium Phos (Neutra-Phos) [address] [facility] Last Admin: 04/04/18 09:42 Dose: 1 pkt Thiamine HCl (Vitamin B1 Tab) [address] [facility] Last Admin: 04/04/18 09:42 Dose: 100 mg Physical Exam - Constitutional Appears: Well - Head Exam Head Exam: ATRAUMATIC - Eye Exam Eye Exam: Normal appearance - ENT Exam ENT Exam: Normal Exam - Respiratory Exam Respiratory Exam: NORMAL BREATHING PATTERN - Cardiovascular Exam Cardiovascular Exam: REGULAR RHYTHM Results - Vital Signs Recent Vital Signs: Last Vital Signs Temp 98 F 04/04/18 08:16 Pulse 87 04/04/18 08:16 Resp 18 04/04/18 08:16 BP 96/70 L 04/04/18 08:16 Pulse Ox 100 04/04/18 08:16 - Labs Result Diagrams: 04/04/18 05:00 04/04/18 05:00 Labs: Laboratory Results - last 24 hr 04/03/18 04/03/18 04/04/18 08:57 09:29 05:00 WBC 4.9 RBC 3.44 L Hgb 11.0 L Hct 32.3 L MCV 93.8 MCH 32.1 H MCHC 34.2 RDW 16.0 H Plt Count 234 Sodium Potassium Chloride Carbon Dioxide Anion Gap BUN Creatinine Est GFR ( Amer) Est GFR (Non-Af Amer) Random Glucose Calcium Phosphorus Magnesium Total Bilirubin AST ALT Alkaline Phosphatase Total Protein Albumin Globulin Albumin/Globulin Ratio Amylase 137 H Lipase 911 H Folate 10.6 04/04/18 05:00 WBC RBC Hgb Hct MCV MCH MCHC RDW Plt Count Sodium 139 Potassium 3.5 L Chloride 100 Carbon Dioxide 30 Anion Gap 13 BUN 4 L Creatinine 0.3 L Est GFR ( Amer) > 60 Est GFR (Non-Af Amer) > 60 Random Glucose 106 H Calcium 9.0 Phosphorus 2.5 Magnesium 1.8 Total Bilirubin 3.6 H AST 198 H ALT 97 H Alkaline Phosphatase 124 Total Protein 6.6 Albumin 3.6 Globulin 3.0 Albumin/Globulin Ratio 1.2 Amylase Lipase 1128 H Folate Assessment & Plan (1) Hx of fall Assessment and Plan: No evidence of cardiac disease Status: Acute Priority: High (2) Hepatic steatosis Status: Acute Priority: High (3) History of ETOH abuse Status: Acute Priority: High
[2018-04-04 12:18] VITALS: BP 118/83; TEMP 97.8
--- NOTE | 2018-04-04 13:21 | CP.PCM.PN ---
<Hemant Caballero - Last Filed: 04/04/18 13:17> Subjective - Date & Time of Evaluation Date of Evaluation: 04/04/18 Time of Evaluation: 13:23 - Subjective Subjective: GI Fellow PGY4, progress note. No changes today. No acute complaints. Asking to go home. Objective - Vital Signs/Intake and Output Vital Signs (last 24 hours): Temp Pulse Resp BP Pulse Ox 97.8 F 86 18 118/83 100 04/04/18 12:17 04/04/18 12:17 04/04/18 12:17 04/04/18 12:17 04/04/18 12:17 - Medications Medications: Current Medications Chlordiazepoxide (Librium) 25 mg PO Q6 [facility] Last Admin: 04/04/18 09:46 Dose: 25 mg Folic Acid (Folic Acid) 1 mg PO DAILY [facility] Last Admin: 04/04/18 09:42 Dose: 1 mg Hydromorphone HCl (Dilaudid) 1 mg IVP Q4 PRN PRN Reason: Pain, severe (8-10) Last Admin: 03/31/18 20:56 Dose: 1 mg Lactated Ringer's (Lactated Ringer's) 1,000 mls @ 200 mls/hr IV .Q5H [facility] Lactulose (Enulose) 30 gm PO DAILY [facility] Potassium Phos/Sodium Phos (Neutra-Phos) 1 pkt PO QID [facility] Last Admin: 04/04/18 09:42 Dose: 1 pkt Thiamine HCl (Vitamin B1 Tab) 100 mg PO DAILY [facility] Last Admin: 04/04/18 09:42 Dose: 100 mg - Labs Labs: 04/04/18 05:00 04/04/18 05:00 PT 12.0 Seconds (9.8-13.1) 04/02/18 06:34 INR 1.1 04/02/18 06:34 APTT 30.7 Seconds (25.6-37.1) 03/31/18 11:05 - Constitutional Appears: Well - Head Exam Head Exam: ATRAUMATIC, NORMAL INSPECTION, NORMOCEPHALIC - Eye Exam Eye Exam: EOMI, Normal appearance, PERRL - ENT Exam ENT Exam: Mucous Membranes Moist, Normal Exam - Respiratory Exam Respiratory Exam: Clear to Ausculation Bilateral, NORMAL BREATHING PATTERN - Cardiovascular Exam Cardiovascular Exam: REGULAR RHYTHM, +S1, +S2. absent: Murmur - GI/Abdominal Exam GI & Abdominal Exam: Soft, Normal Bowel Sounds, Organomegaly. absent: Tenderness - Extremities Exam Extremities Exam: Normal Inspection - Neurological Exam Neurological Exam: Alert, Awake, CN II-XII Intact, Normal Gait, Oriented x3 - Psychiatric Exam Psychiatric exam: Normal Affect, Normal Mood - Skin Skin Exam: Dry, Normal Color Assessment and Plan - Assessment and Plan (Free Text) Assessment: Patient is a 42 year-old white female with PMHx significant for alcohol abuse s/ p recent alcohol rehabilitation ending in January 2018 who presented to the ED yesterday with generalized weakness, abdominal pain, vomiting -Abnormal LFTs - Acute alcoholic hepatitis suspected -Acute gastroenteritis -Elevated lipase, no clinical acute pancreatitis -EtOH abuse -Hyponatremia, suspect beer potomania -S/P fall - possible post-concussive symptoms Plan: -Presently, patient asymptomatic -Symptoms of nausea/vomiting after fall possibly related to post-concussive symptoms - no abnormality noted on CT head -Advance diet as tolerated -Continue to trend LFTs; AST/ALT downtrending - T bili typically lags behind -Hepatomegaly appreciate on imaging with steatosis - education provided on strict EtOH abstinence, diet and exercise -MDF<32 and no steroids indicated at this time for acute alcoholic hepatitis -Suspect beer potomania - Okay to discharge from GI perspective. Will sign off at this time. <Marta Francis - Last Filed: 04/04/18 15:09> Objective - Vital Signs/Intake and Output Vital Signs (last 24 hours): Temp Pulse Resp BP Pulse Ox 97.8 F 86 18 118/83 100 04/04/18 12:17 04/04/18 12:17 04/04/18 12:17 04/04/18 12:17 04/04/18 12:17 - Labs Labs: 04/04/18 05:00 04/04/18 05:00 PT 12.0 Seconds (9.8-13.1) 04/02/18 06:34 INR 1.1 04/02/18 06:34 APTT 30.7 Seconds (25.6-37.1) 03/31/18 11:05 Attending/Attestation - Attestation I have personally seen and examined this patient.: Yes I have fully participated in the care of the patient.: Yes I have reviewed all pertinent clinical information, including history, physical exam and plan: Yes Notes (Text): 04/04/18 15:08 This is a 42 year-old white female with PMHx significant for alcohol abuse s/p recent alcohol rehabilitation ending in January 2018 who presented to the ED yesterday with generalized weakness, abdominal pain, vomiting in setting of acute GE. Abnormal LFt ikely due to alcohol abuse. No indication for steroids as DF less than 32. Electrolyte imbalance. Replete by primary team. No s/s of acute pancreatitis
--- NOTE | 2018-04-04 13:34 | CP.PCM.DIS ---
Provider - Provider Date of Admission: 03/31/18 13:18 Attending physician: Alan Smith MD Consults: Cardiology and Gastroenterology. Time Spent in preparation of Discharge (in minutes): 35 Diagnosis - Discharge Diagnosis (1) Hx of fall Status: Acute Priority: High (2) Abdominal pain Status: Acute Priority: High (3) Hepatic steatosis Status: Acute Priority: High (4) Constipation Status: Acute Priority: High (5) History of ETOH abuse Status: Acute Priority: High Hospital Course - Lab Results Lab Results: Micro Results 03/31/18 15:30 Blood-Venous Blood Culture - Preliminary NO GROWTH AFTER 3 DAYS Most Recent Lab Values WBC 4.9 K/uL (4.8-10.8) 04/04/18 05:00 RBC 3.44 Mil/uL (3.80-5.20) L 04/04/18 05:00 Hgb 11.0 g/dL (12.0-16.0) L 04/04/18 05:00 Hct 32.3 % (34.0-47.0) L 04/04/18 05:00 MCV 93.8 fl (81.0-99.0) 04/04/18 05:00 MCH 32.1 pg (27.0-31.0) H 04/04/18 05:00 MCHC 34.2 g/dL (33.0-37.0) 04/04/18 05:00 RDW 16.0 % (11.5-14.5) H 04/04/18 05:00 Plt Count 234 K/uL (130-400) 04/04/18 05:00 MPV 7.9 fl (7.2-11.7) 04/03/18 04:55 Neut % (Auto) 46.4 % (50.0-75.0) L 04/03/18 04:55 Lymph % (Auto) 35.2 % (20.0-40.0) 04/03/18 04:55 [place] % (Auto) 15.5 % (0.0-10.0) H 04/03/18 04:55 Eos % (Auto) 1.9 % (0.0-4.0) 04/03/18 04:55 Baso % (Auto) 1.0 % (0.0-2.0) 04/03/18 04:55 Neut # (Auto) 1.8 K/uL (1.8-7.0) 04/03/18 04:55 Lymph # (Auto) 1.4 K/uL (1.0-4.3) 04/03/18 04:55 [place]minn # (Auto) 0.6 K/uL (0.0-0.8) 04/03/18 04:55 Eos # (Auto) 0.1 K/uL (0.0-0.7) 04/03/18 04:55 Baso # (Auto) 0.0 K/uL (0.0-0.2) 04/03/18 04:55 PT 12.0 Seconds (9.8-13.1) 04/02/18 06:34 INR 1.1 04/02/18 06:34 APTT 30.7 Seconds (25.6-37.1) 03/31/18 11:05 Sodium 139 mmol/l (132-148) 04/04/18 05:00 Potassium 3.5 MMOL/L (3.6-5.0) L 04/04/18 05:00 Chloride 100 mmol/L (98-107) 04/04/18 05:00 Carbon Dioxide 30 mmol/L (22-30) 04/04/18 05:00 Anion Gap 13 (10-20) 04/04/18 05:00 BUN 4 mg/dl (7-17) L 04/04/18 05:00 Creatinine 0.3 mg/dl (0.7-1.2) L 04/04/18 05:00 Est GFR ( Amer) > 60 04/04/18 05:00 Est GFR (Non-Af Amer) > 60 04/04/18 05:00 Random Glucose 106 mg/dL (65-105) H 04/04/18 05:00 Calcium 9.0 mg/dL (8.4-10.2) 04/04/18 05:00 Phosphorus 2.5 mg/dl (2.5-4.5) 04/04/18 05:00 Magnesium 1.8 MG/DL (1.6-2.3) 04/04/18 05:00 Total Bilirubin 3.6 mg/dl (0.2-1.3) H 04/04/18 05:00 AST 198 U/L (14-36) H 04/04/18 05:00 ALT 97 U/L (9-52) H 04/04/18 05:00 Alkaline Phosphatase 124 U/L (38-126) 04/04/18 05:00 Total Creatine Kinase 216 U/L (30-135) H 03/31/18 11:05 Troponin I 0.0230 ng/mL (0.00-0.120) 03/31/18 15:30 Total Protein 6.6 G/DL (6.3-8.2) 04/04/18 05:00 Albumin 3.6 g/dL (3.5-5.0) 04/04/18 05:00 Globulin 3.0 gm/dL (2.2-3.9) 04/04/18 05:00 Albumin/Globulin Ratio 1.2 (1.0-2.1) 04/04/18 05:00 Amylase 137 U/L (30-110) H 04/03/18 09:29 Lipase 1128 U/L (23-300) H 04/04/18 05:00 Vitamin B12 351 pg/mL (239-931) 04/03/18 08:57 Folate 10.6 ng/mL 04/03/18 08:57 TSH 3rd Generation 3.08 mIU/ML (0.46-4.68) 04/01/18 04:35 Urine Color Inna (YELLOW) 03/31/18 10:08 Urine Clarity Cloudy (Clear) 03/31/18 10:08 Urine pH 5.0 (5.0-8.0) 03/31/18 10:08 Ur Specific [place] 1.020 (1.003-1.030) 03/31/18 10:08 Urine Protein >=500 mg/dL (NEGATIVE) 03/31/18 10:08 Urine Glucose (UA) 50 mg/dL (Normal) 03/31/18 10:08 Urine Ketones 80 mg/dL (NEGATIVE) 03/31/18 10:08 Urine Blood Small (NEGATIVE) 03/31/18 10:08 Urine Nitrate Negative (NEGATIVE) 03/31/18 10:08 Urine Bilirubin Small (NEGATIVE) 03/31/18 10:08 Urine Urobilinogen 4.0 mg/dL (0.2-1.0) H 03/31/18 10:08 Ur Leukocyte Esterase Neg [place]/uL (Negative) 03/31/18 10:08 Urine RBC (Auto) 7 /hpf (0-3) H 03/31/18 10:08 Urine Microscopic WBC 24 /hpf (0-5) H 03/31/18 10:08 Ur Squamous Epith Cells 7 /hpf (0-5) H 03/31/18 10:08 Ur Transition Epith Cell 1 /hpf (0-3) 03/31/18 10:08 Hyaline Casts 11-20 /hpf (0-2) H 03/31/18 10:08 Urine Opiates Screen Negative (NEGATIVE) 04/01/18 10:20 Urine Methadone Screen Negative (NEGATIVE) 04/01/18 10:20 Ur Barbiturates Screen Negative (NEGATIVE) 04/01/18 10:20 Ur Phencyclidine Scrn Negative (NEGATIVE) 04/01/18 10:20 Ur Amphetamines Screen Negative (NEGATIVE) 04/01/18 10:20 U Benzodiazepines Scrn Negative (NEGATIVE) 04/01/18 10:20 U Oth Cocaine Metabols Negative (NEGATIVE) 04/01/18 10:20 U Cannabinoids Screen Negative (NEGATIVE) 04/01/18 10:20 Alcohol, Quantitative < 10 mg/dl (0-10) 03/31/18 11:05 Hepatitis A IgM Ab Negative (NEGATIVE) 04/01/18 11:31 Hep Bs Antigen Negative (NEGATIVE) 04/01/18 11:31 Hep B Core IgM Ab Negative (NEGATIVE) 04/01/18 11:31 Hepatitis C Antibody Negative (NEGATIVE) 04/01/18 11:31 - Date & Time of H&P Date of H&P: 04/01/18 Time of H&P: 11:55 Discharge Exam - Head Exam Head Exam: ATRAUMATIC, NORMAL INSPECTION, NORMOCEPHALIC - Eye Exam Eye Exam: PERRL - ENT Exam ENT Exam: Normal Exam - Neck Exam Neck exam: Normal Inspection - Respiratory Exam Respiratory Exam: NORMAL BREATHING PATTERN - Cardiovascular Exam Cardiovascular Exam: REGULAR RHYTHM - GI/Abdominal Exam GI & Abdominal Exam: Normal Bowel Sounds, Soft Additional comments: Old ecchymosis on R flank, R abdominal wall. - Extremities Exam Extremities exam: normal inspection - Back Exam Back exam: NORMAL INSPECTION - Neurological Exam Neurological exam: Alert, Oriented x3, Reflexes Normal Additional comments: No motor sensory deficit. - Skin Skin Exam: Warm Discharge Plan - Discharge Medications Prescriptions: Lactulose [Enulose] 30 gm PO DAILY #30 udc Folic Acid 1 mg PO DAILY #30 tab - Follow Up Plan Condition: STABLE Disposition: HOME/ ROUTINE Patient education suggested?: Yes Instructions: Pancreatitis (DC), Alcohol Abuse and Alcoholism (DC) Additional Instructions: pt. doing well, tolerating diet, denies fever, chills, abd pain, n/v/d K=3.5 seen by - cleared for d/c by and for d/c today Rx for meds provided education provided on strict EtOH abstinence, diet and exercise follow up with pmd in 1 week Referrals: Marta Francis MD [Medical Doctor] - Alan Smith MD [Staff Provider] - Nimesh Rodarte MD [Staff Provider] -
[2018-04-07 10:26] VITALS: PULSE 84
--- NOTE | 2018-04-12 13:48 | PQF ---
PROVIDER RESPONSE TEXT: Final DX: Acute alcoholic hepatitis, acute gastroenteritis, no pancreatitis REVIEWER QUERY TEXT: Conflicting Documentation Clarification A single mention or documentation of multiple diagnoses for the same clinical presentation appears in the record by GI but not in the attending note: GI: Acute alcoholic hepatitis suspected, acute gastroenteritis resolved, questionable resolving acute alcoholic pancreatitis less likely Please clarify the diagnosis/diagnoses. Please also document if the condition is: -- Confirmed and current -- Confirmed, treated and resolved -- Ruled out -- Other, please specify The patient's Clinical Indicators include: GI: Acute alcoholic hepatitis suspected, acute gastroenteritis resolved, questionable resolving acute alcoholic pancreatitis less likely Query created by: Padmini Maria on 04/03/2018 11:11 AM Electronically signed by: Alan Smith MD 04/12/2018 1:45 PM
== END 2018-04-04 13:51 | disposition home or self-care (01) | DRG 433 ==
LOC: H.ER 09:27 → H.ERHOLD 13:18 → H.TEL 17:13 → UNDODISIN 04-02 09:35
PROVIDERS: ADMIT Internal Medicine Pulmonary Disease; ATTEND Internal Medicine Pulmonary Disease
DX: K70.10 Alcoholic hepatitis without ascites (principal); E87.1 Hypo-osmolality and hyponatremia; E87.6 Hypokalemia; E83.39 Other disorders of phosphorus metabolism; K59.00 Constipation, unspecified; R74.8 Abnormal levels of other serum enzymes; F10.10 Alcohol abuse, uncomplicated; F07.81 Postconcussional syndrome; K52.9 Noninfective gastroenteritis and colitis, unspecified; F17.200 Nicotine dependence, unspecified, uncomplicated; D69.6 Thrombocytopenia, unspecified